=== PATIENT | male | born 1980 | race Caucasian/White ===

== ENCOUNTER 2021-09-30 16:49 | Emergency (ER) | payer OTHER ==
[~2021-09-30] VITALS: Ht 190.5 cm; Wt 97.5 kg
[2021-09-30] MEDS ORDERED: Percocet 5-3251 EACH PO (20:07)
== END 2021-09-30 20:22 | disposition home or self-care (01) ==
LOC: ER 16:49
DX: S52.502A Unspecified fracture of the lower end of left radius, initial encounter for closed fracture (principal); Z23 Encounter for immunization; V87.8XXA Person injured in other specified noncollision transport accidents involving motor vehicle (traffic), initial encounter
CPT/HCPCS: 25605; 73090; 73100; 76000; 90471; 90714; 96374; 96375; 99283-25; A9270; J1170; J1885; J2405; J2704; J3010; J7030

== ENCOUNTER 2021-10-09 09:12 | Day surgery (SDC) | payer OTHER ==
[~2021-10-09] VITALS: Ht 193 cm; Wt 94.1 kg
[~2021-10-09 09:12] MED LIST: Percocet 5-3251 EACH PO
--- NOTE | 2021-10-09 09:19 | NUR ---
History, Chart, Medications and Allergies reviewed before start of procedure. Patient confirms NPO status and agrees with scheduled surgery. Patient States Post-Procedure ride home has been arranged with his .
[2021-10-09] MEDS ORDERED: IBUP200 PO (09:40)
--- NOTE | 2021-10-09 13:30 | NUR ---
Discharge instructions reviewed with patient. Patient verbalizes understanding. Copy given to patient to take home. ICE PACK PROVIDED, DRESSING DRY AND INTACT. PT LEFT ARM REMAIN NUMB AND PT UNABLE TO MOVE HIS FINGERS. PT ABD TO DRINK WATER AND COFFEE. TOLERATED OSCAR CRACKERS. PT HOME WITH HIS MOM.
--- NOTE | 2021-10-10 09:30 | NUR ---
10/10/21 0930 Karli Tatum VERIFICATIONS: EDIT CHART.
== END 2021-10-09 13:28 | disposition home or self-care (01) ==
LOC: ORSCMMR 09:12 → ORD 10:45 → ORSCMMR 13:28
PROVIDERS: Orthopaedic Surgery
PROC: 0PSJ04Z Reposition Left Radius with Internal Fixation Device, Open Approach (ICD-10-PCS; principal; 2021-10-09 10:45)
DX: S52.572A Other intraarticular fracture of lower end of left radius, initial encounter for closed fracture (principal); F17.220 Nicotine dependence, chewing tobacco, uncomplicated
CPT/HCPCS: C1713; J0690; J1100; J1885; J2250; J2405; J2704; J3010; J7120

== ENCOUNTER 2024-12-22 13:17 | Emergency (ER) | payer OTHER ==
[~2024-12-22] VITALS: Ht 190.5 cm; Wt 86.2 kg
[~2024-12-22 13:17] MED LIST changes: +IBUP200 PO
[2024-12-22 14:17] LABS: BASOPHILS ABSOLUTE AUTO 0.04 K/mm3 (0.00-0.23); BASOPHILS PERCENT AUTO 1 % (0-2); EOSINOPHILS ABSOLUTE AUTO 0.03 K/mm3 (0.00-0.68); EOSINOPHILS PERCENT AUTO 0 % (0-6); Hematocrit 44.0 % (37.0-53.0); Hemoglobin 14.6 g/dL (13.5-17.5); IMMATURE GRAN ABSOLUTE AUTO 0.01 K/mm3 (0.00-0.10); IMMATURE GRAN PERCENT AUTO 0 % (0-1); LYMPHOCYTES ABSOLUTE AUTO 1.13 K/mm3 (0.84-5.20); LYMPHOCYTES PERCENT AUTO 16 % (21-46); MONOCYTES ABSOLUTE AUTO 0.45 K/mm3 (0.16-1.47); MONOCYTES PERCENT AUTO 6 % (4-13); Mean Corpuscular HGB Conc 33.2 g/dL (31.5-36.5); Mean Corpuscular Volume 77 fL (80-100); NEUTROPHILS ABSOLUTE AUTO 5.35 K/mm3 (1.96-9.15); NEUTROPHILS PERCENT AUTO 76 % (41-73); NRBC ABSOLUTE 0.00 K/mm3 (0.00-0.02); NRBC Auto 0.0 /100 WBC (0.0-0.2); Platelet Count 209 K/mm3 (150-400); RDW Coefficient Variation 12.8 % (11.7-14.2); RDW Standard Deviation 35.3 fL (35.1-46.3)
[2024-12-22 15:07] LABS: Alanine Aminotransfer (ALT/SGP 44.0 U/L (12-78); Albumin, Blood 4.1 g/dL (3.4-5.0); Albumin/Globulin Ratio 1.2 (0.8-1.8); Anion Gap 6.0 mmol/L (3-11); Aspartate Aminotrans (AST/SGOT 18.0 U/L (12-37); Bilirubin, Total 0.5 mg/dL (0.1-1.0); Blood Urea Nitrogen 17.0 mg/dL (8-24); CO2, Blood 29.0 mmol/L (21-32); Calcium, Blood 9.9 mg/dL (8.5-10.1); Chloride, Blood 107.0 mmol/L (98-108); Creatinine, Blood 1.09 mg/dL (0.60-1.20); Globulin, Blood 3.3 g/dL (2.2-4.0); Glucose, Blood 101.0 mg/dL (70-99); Potassium, Blood 4.1 mmol/L (3.5-5.5); Sodium, Blood 138.0 mmol/L (136-145); Total Protein, Blood 7.4 g/dL (6.4-8.2)
[2024-12-22 17:00] VITALS: BP 142/74
== END 2024-12-22 17:00 | disposition home or self-care (01) ==
LOC: ER 13:17
PROVIDERS: Emergency Medicine
DX: R00.2 Palpitations (principal); R10.13 Epigastric pain; Z87.891 Personal history of nicotine dependence; Z79.899 Other long term (current) drug therapy
CPT/HCPCS: 74177; 80053; 83690; 84484; 85025; 93005; 93010; 93242; 99285-25; Q9967